=== PATIENT | male | born 1945 | race Caucasian/White ===

== ENCOUNTER 2020-10-09 08:45 | Emergency (ER) | payer MEDICARE, BC ==
[~2020-10-09] VITALS: Ht 170.2 cm; Wt 93.2 kg
[~2020-10-09 08:45] MED LIST: FLEXERIL5 MG PO; LIDODERM PATCH TP; MS CONTIN 330 MG/TAB PO; NORCO 325 MG-51 TAB PO; ZESTRIL 5MG5 MG PO; ZESTRIL2.5 MG PO
[2020-10-09 08:49] VITALS: TEMP 97.9
[2020-10-09 09:05] LABS: BASO % 0.6 % (0.0-2.0); EOS # 0.4 (0.0-0.7); EOS % 5.6 % (0-4.0); GRAN # 3.6 (1.4-6.5); GRAN % 50.6 % (42.2-75.2); HEMATOCRIT 46.9 % (42.0-52.0); HEMOGLOBIN 15.8 g/dl (13.5-18.0); LYMPH # 2.5 (1.2-3.4); LYMPH % 34.7 % (20.0-51.0); MEAN CELL VOLUME 92 fl (80.0-100.0); MEAN CORPUSCULAR HEMOGLOBIN 31 pg (27.0-31.0); MEAN CORPUSCULAR HGB CONC 34 g/dl (33.0-37.0); MEAN PLATELET VOLUME 9.3 fl (7.4-10.4); MONO # 0.6 (0.1-0.6); MONO % 8.2 % (1.7-9.3); PLATELET COUNT 291 K/mm3 (130-400); RED BLOOD COUNT 5.09 M/mm3 (4.20-5.60); REDCELL DISTRIBUTION WIDTH-CV 13.8 % (11.5-14.5)
[2020-10-09 09:15] LABS: ALANINE AMINOTRANSFERASE 16 U/L (4-49); ALBUMIN 3.9 gm/dL (3.5-5.0); ALKALINE PHOSPHATASE 80 U/L (50-136); ANION GAP 7 mmol/L (7-16); AST,SGOT 31 U/L (15-37); BILIRUBIN,TOTAL 0.4 mg/dL (0.0-1.0); BLOOD UREA NITROGEN 20 mg/dL (9-20); CARBON DIOXIDE 24 mmol/L (22-30); CHLORIDE 107 mmol/L (98-107); CREATININE, serum 1.02 (0.66-1.25); GLUCOSE 102 mg/dL (74-106); POTASSIUM 4.6 mmol/L (3.4-5.0); SODIUM 139 mmol/L (137-145); TOTAL PROTEIN 8.2 gm/dL (6.4-8.2)
[2020-10-09 09:31] LABS: TROPONIN-I < 0.012 ng/mL (0.000-0.035)
[2020-10-09 13:00] VITALS: BP 143/85; PULSE 56
== END 2020-10-09 13:00 | disposition home or self-care (01) ==
LOC: COL.ER 08:45
PROVIDERS: Emergency Medicine
DX: R07.89 Other chest pain (principal); R79.0 Abnormal level of blood mineral; I10 Essential (primary) hypertension; Z87.891 Personal history of nicotine dependence; Z79.899 Other long term (current) drug therapy

== ENCOUNTER 2020-11-20 23:35 | Emergency (ER) | payer MEDICARE, BC ==
[~2020-11-20] VITALS: Ht 170.2 cm; Wt 95.5 kg
[2020-11-20 23:50] VITALS: TEMP 98.3
[2020-11-21 00:48] LABS: BASO # 0.1 (0.0-0.2); BASO % 0.4 % (0.0-2.0); EOS # 0.2 (0.0-0.7); EOS % 1.7 % (0-4.0); GRAN # 10.4 (1.4-6.5); GRAN % 82.3 % (42.2-75.2); HEMATOCRIT 43.3 % (42.0-52.0); HEMOGLOBIN 14.9 g/dl (13.5-18.0); LYMPH # 0.9 (1.2-3.4); LYMPH % 7.3 % (20.0-51.0); MEAN CELL VOLUME 90 fl (80.0-100.0); MEAN CORPUSCULAR HEMOGLOBIN 31 pg (27.0-31.0); MEAN CORPUSCULAR HGB CONC 34 g/dl (33.0-37.0); MEAN PLATELET VOLUME 9.5 fl (7.4-10.4); PLATELET COUNT 287 K/mm3 (130-400); RED BLOOD COUNT 4.79 M/mm3 (4.20-5.60); REDCELL DISTRIBUTION WIDTH-CV 14.4 % (11.5-14.5)
[2020-11-21 01:03] LABS: ALBUMIN 3.4 gm/dL (3.4-4.8); BILIRUBIN,TOTAL 0.4 mg/dL (0.2-1.2); CALCIUM 8.9 mg/dL (8.4-10.2); CREATININE, serum 1.35 mg/dL (0.72-1.25); POTASSIUM 3.9 mmol/L (3.5-4.5); TOTAL PROTEIN 7.2 gm/dL (6.2-8.1)
[2020-11-21 01:09] LABS: TROPONIN-I 0.019 ng/mL (0.00-0.033)
[2020-11-21 01:50] VITALS: BP 151/87; PULSE 73
== END 2020-11-21 01:50 | disposition home or self-care (01) ==
LOC: COL.ER 23:35
PROVIDERS: Emergency Medicine
DX: R07.89 Other chest pain (principal); D72.829 Elevated white blood cell count, unspecified; I10 Essential (primary) hypertension; Z79.899 Other long term (current) drug therapy